=== PATIENT | male | born 1950 | race Caucasian/White ===

== ENCOUNTER 2016-09-10 13:22 | Inpatient (IN) | payer BC ==
--- NOTE | ~2016-09-10 | DS ---
Unit #: [id number] #: [id number] Patient: LUANNE SHAH [id number] [address] [address] [id number] MR#: [id number] NAME: LUANNE SHAH ROOM: 461 Age: 65 Sex: M Admission Date: 09/10/2016 : 1950 Discharge Date: 09/13/2016 Attending Physician: Thony Grey M.D. Primary Care Physician: Primary Care Physician No DISCHARGE SUMMARY PRIMARY DIAGNOSIS Obstructive pyelonephritis. PROCEDURES PERFORMED Cystoscopy, right retrograde placement of double-J ureteral stent. DISPOSITION The patient to follow up with Urology in [place]. DISCHARGE MEDICATIONS Same as admission medications plus Bactrim, tamsulosin, and [place]. HISTORY OF PRESENT ILLNESS This patient initially presenting from out of town and came to the emergency department with nausea, chills, right flank pain, and low-grade fever for 12 hours. He was recognized to have obstructive pyelonephritis due to a 4-mm stone obstructing distal right ureter. This was seen on CT scan. Note that initial white count was 17 and increasing that evening to 21 postoperatively. HOSPITAL COURSE The patient was taken promptly to the operating room where Dr. Grey performed cystoscopy retrograde and right stent placement. He was covered with Rocephin and a Aponte catheter temporarily. He convalesced accordingly and when urine culture returned Enterobacter cloacae sensitive to Bactrim and other agents. He was started on Bactrim. On the day of discharge, his creatinine was 1.5. WBC down to 9.3. He was afebrile for over 24 hours. Tolerating Bactrim, voiding, and discharged with disposition, and medications noted. Dictated by... Jodi Berry/lorraine TD: 10/01/2016 08:17 JOB #: [id number] Unit #: [id number] #: [id number] Patient: LUANNE SHAH DISCHARGE SUMMARY Page 1 of 1 X Catarino Garcia MD DISCHARGE SUMMARY
--- NOTE | ~2016-09-10 | OR ---
Unit #: [id number] #: [id number] Patient: LUANNE SHAH [id number] [address] [place], [place] [address] [id number] Jimmy MR#: [id number] NAME: LUANNE SHAH ROOM: 461 Date of Procedure: 09/10/2016 Admission Date: 09/10/2016 Surgeon: Thony Grey M.D. : 1950 Attending Physician: Thony Grey M.D. OPERATIVE REPORT PREOPERATIVE DIAGNOSES Right distal ureteral stone, hydronephrosis, and UTI. POSTOPERATIVE DIAGNOSES Right distal ureteral stone, hydronephrosis, and UTI. PROCEDURES PERFORMED 1. Cystoscopy, right retrograde pyelogram, and placement of double-J ureteral stent. 2. Interpretation of retrograde pyelogram. COMPLICATIONS None. BRIEF HISTORY AND DESCRIPTION Mr. Shah is a gentleman with a history of right distal ureteral stone, hydronephrosis, UTI, leukocytosis and fever, who presented with the above mentioned symptoms. After explaining the risks and benefits of the procedure, informed consent was obtained. He was brought to the operating room and placed in the dorsal lithotomy position, prepped and draped in a sterile fashion. Rigid cystoscopy was performed with a 21-Sami cystoscope. Anterior urethra is within normal limits. Prostatic urethra showing moderate obstruction upon entering the bladder. The bladder itself appeared to be within normal limits. Ureteral orifice in the right caliber identified. There are significant edema in the ureteral orifice. A Pollack catheter was placed in the ureteral orifice with stone in the intramural ureter and it barely stuck. I had a great difficulty placing a wire or injecting contrast past it. With angle-tip glidewire, I was able to get a wire passed it and then pass the Otter catheter over it and retrograde was performed. The glidewire was switched to a sensor guidewire and a 5 x 26 cm double-J ureteral stent was placed. Immediately copious amounts of purulent urine were drained. Interpretation of retrograde pyelogram: The retrograde pyelogram on the right side revealed a stone in the distal ureteral proximal hydronephrosis, hydroureter, dilated calyceal anatomy, and poor drainage. The patient tolerated the procedure well, transferred to recovery in stable condition. Unit #: [id number] #: [id number] Patient: LUANNE SHAH Dictated by... Jodi Arevalo/lorraine TD: 09/11/2016 03:15 JOB #: [id number] OPERATIVE REPORT Page 1 of 1 X Thony Grey MD PROCEDURE OPERATIVE NOTE
--- NOTE | ~2016-09-10 | EKG ---
PATIENT: LUANNE SHAH UNIT #: [id number] Ventricular Rate: 92 BPM Atrial Rate: 92 BPM P-R Interval: 168 ms QRS Duration: 106 ms Q-T Interval: 354 ms QTC Calculation(Bezet): 437 ms P Beulah: 37 degrees Calculated R Beulah: -26 degrees Calculated T Beulah: 123 degrees Diagnosis Line: Normal sinus rhythm Diagnosis Line: Left ventricular hypertrophy Diagnosis Line: ST and T wave abnormality, consider lateral ischemia Diagnosis Line: Abnormal ECG Diagnosis Line: No previous ECGs available Diagnosis Line: Confirmed by MICHELINE SOLOMON MD ([id number]) on Diagnosis Line: 09/10/2016 10:22:38 PM INTERPRETING MD: PAULA
--- NOTE | ~2016-09-10 | CT4 ---
[facility] A Service of [facility] RADIOLOGY TEXT RESULTS PATIENT: LUANNE SHAH LOCATION: [facility] [id number] : 51 UNIT #: [id number] AGE: [address]: Thony Grey MD SEX: M ORDER DR: [id number] [id number] [facility]. [place], [place] [address] [id number] MR#: [id number] Acc #: [id number] NAME: LUANNE SHAH : 1950 SEX: M STUDY DATE/TIME: 09/10/2016 17:24 UNIT: [facility] ROOM: [facility] STUDY DESCRIPTION: CT Abd and Pelv Wo Cont Attending Physician: Thony Grey M.D. Ordering Physician: Dayami Hansen M.D. Primary Care Physician: No Primary Care Physician MEDICAL IMAGING REPORT This report is preliminary unless electronic signature is present EXAM CT abdomen and pelvis without contrast HISTORY 65-year-old male with lower abdominal pain, nausea, vomiting, and diarrhea for 4 days. TECHNIQUE Axial images performed through the abdomen and pelvis without contrast. Multiplanar reconstructed images were reviewed at a workstation. This CT exam was performed with one or more of the following radiation dose reduction techniques: Automatic exposure control, adjustment of mA and/or kV according to patient size, and iterative reconstruction. FINDINGS ABDOMEN: There is moderate right-sided hydronephrosis and perinephric edema with a 4 mm right UVJ stone. Findings compatible with acute obstruction. There are multiple left-sided nonobstructing stones. Liver, spleen, gallbladder, gastrointestinal tract unremarkable. PELVIS: Bladder is mildly distended. Osseous structures show degenerative changes T12-L1. IMPRESSION 1. A 4 mm right UVJ stone with a moderate right-sided hydronephrosis and hydroureter with perinephric edema. Findings are compatible acute obstruction. 2. Multiple nonobstructing intrarenal stones on the left. Dictated by.Trista Carty M.D. [facility] A Service of [facility] RADIOLOGY TEXT RESULTS PATIENT: LUANNE SHAH LOCATION: [facility] 461-01 : 51 UNIT #: [id number] AGE: [address]: Thony Grey MD SEX: M ORDER DR: THIS IS AN ELECTRONICALLY VERIFIED REPORT Jelani Carty M.D. at 09/11/2016 3:09 PM Parminder TD: 09/11/2016 08:39 JOB #: [id number] MEDICAL IMAGING REPORT Page 1 of 1 COPY
[2016-09-10 15:16] LABS: BASOPHIL% 0.2 % (0-2.5); DIFF IND YES; EOSINOPHIL# 0.2 X10e3 (0-0.7); EOSINOPHIL% 1.3 % (0.0-7.0); HEMATOCRIT 50.7 % (38.0-50.0); HEMOGLOBIN 16.7 gm/dL (13.0-16.0); LYMPHOCYTE# 1.4 X10e3 (1.0-3.5); MEAN CELL VOLUME 89.7 FL (83-96); MEAN CORPUSCULAR HEMOGLOBIN 29.5 PG (28-34); MEAN CORPUSCULAR HGB CONC 32.9 g/dL (30-36); MEAN PLATELET VOLUME 8.4 FL (6.5-11.5); MONOCYTE# 0.6 X10e3 (0-1.0); MONOCYTE% 3.7 % (3.0-12.0); NEUTROPHIL# 15.1 X10e3 (1.5-7.1); NEUTROPHIL% 86.8 % (40-75); PLATELET COUNT 281 X10e3 (140-420); RED BLOOD COUNT 5.66 X10e (3.90-5.60); RED CELL DISTRIBUTION WIDTH 14.2 % (11.0-15.5); WHITE BLOOD COUNT 17.4 X10e3 (4.0-10.5)
[2016-09-10 15:40] LABS: ALBUMIN SERUM 5.1 g/dL (3.5-5.0); BILIRUBIN, DIRECT 0.1 mg/dL (0.0-0.2); BILIRUBIN,INDIRECT 0.3 mg/dL (0.0-0.9); BILIRUBIN,TOTAL 0.4 mg/dL (0.2-2.0); BUN/CREATININE RATIO 15.71; CALCIUM SERUM 10.7 mg/dL (8.4-10.2); CREATININE SERUM 1.4 mg/dL (0.6-1.4); GLOM FILT RATE Estimated 52.7 mL/min (>60); PROTEIN TOTAL SERUM 9.4 g/dL (6.0-8.3)
[2016-09-10 15:47] LABS: ANISOCYTOSIS SL; PLATELET ESTIMATE NORMAL (NORMAL)
[2016-09-10 16:23] LABS: URINE SOURCE CLEAN CATCH
[2016-09-10 16:31] LABS: URINE APPEARANCE CLOUDY; URINE BILIRUBIN NEG (NEG); URINE BLOOD 3+ (NEG); URINE COLOR YELLOW; URINE GLUCOSE NEG (NEG); URINE KETONE NEG (NEG); URINE LEUKOCYTE ESTERASE TRACE (NEG); URINE NITRATE NEG (NEG); URINE PROTEIN 1+ (NEG); URINE UROBILINOGEN 0.2 MG/DL (NEG)
[2016-09-10 16:33] LABS: CULTURE INDICATED? YES; URINE BACTERIA AUWI 4+ (NEGATIVE); URINE SQUAMOUS EPITHELIAL CELL OCC /[HPF]
[2016-09-10 16:45] LABS: POC - CKMB 1.2 ng/mL (0.0-7.9); POC - TROPONIN <0.05 ng/mL (<=0.05)
[2016-09-10 18:48] LABS: POC - CKMB 1.5 ng/mL (0.0-7.9); POC - TROPONIN <0.05 ng/mL (<=0.05)
[2016-09-11] MEDS ORDERED: ALLOPURINOL300 MG PO (02:30)
[2016-09-11] MEDS ORDERED: AMLODIPINE BESYL5 MG PO (02:30)
[2016-09-11] MEDS ORDERED: LOW DOSE ASPIRI81 M1 PO (02:31)
[2016-09-11 03:41] LABS: BASOPHIL# 0.1 X10e3 (0-0.3); BASOPHIL% 0.2 % (0-2.5); DIFF IND NO; EOSINOPHIL% 0.2 % (0.0-7.0); HEMATOCRIT 43.8 % (38.0-50.0); HEMOGLOBIN 14.5 gm/dL (13.0-16.0); LYMPHOCYTE# 1.9 X10e3 (1.0-3.5); LYMPHOCYTE% 9.2 % (17.0-45.0); MEAN CELL VOLUME 90.1 FL (83-96); MEAN CORPUSCULAR HEMOGLOBIN 29.7 PG (28-34); MONOCYTE# 1.3 X10e3 (0-1.0); MONOCYTE% 6.4 % (3.0-12.0); NEUTROPHIL# 17.6 X10e3 (1.5-7.1); PLATELET COUNT 181 X10e3 (140-420); RED BLOOD COUNT 4.86 X10e (3.90-5.60); RED CELL DISTRIBUTION WIDTH 14.6 % (11.0-15.5)
[2016-09-11 04:02] LABS: BUN/CREATININE RATIO 14.37; CREATININE SERUM 1.6 mg/dL (0.6-1.4); GLOM FILT RATE Estimated 44.9 mL/min (>60); POTASSIUM 4.7 mmol/L (3.5-5.1)
[2016-09-11 04:03] LABS: CALCIUM SERUM 8.6 mg/dL (8.4-10.2)
[2016-09-11 04:24] LABS: BASOPHIL# 0.1 X10e3 (0-0.3); BASOPHIL% 0.4 % (0-2.5); DIFF IND NO; EOSINOPHIL# 0.1 X10e3 (0-0.7); EOSINOPHIL% 0.3 % (0.0-7.0); HEMATOCRIT 42.3 % (38.0-50.0); HEMOGLOBIN 13.6 gm/dL (13.0-16.0); LYMPHOCYTE% 10.7 % (17.0-45.0); MEAN CELL VOLUME 90.7 FL (83-96); MEAN CORPUSCULAR HEMOGLOBIN 29.1 PG (28-34); MEAN CORPUSCULAR HGB CONC 32.1 g/dL (30-36); MEAN PLATELET VOLUME 8.9 FL (6.5-11.5); MONOCYTE# 1.4 X10e3 (0-1.0); MONOCYTE% 7.2 % (3.0-12.0); NEUTROPHIL# 15.5 X10e3 (1.5-7.1); NEUTROPHIL% 81.4 % (40-75); PLATELET COUNT 213 X10e3 (140-420); RED BLOOD COUNT 4.67 X10e (3.90-5.60); RED CELL DISTRIBUTION WIDTH 14.4 % (11.0-15.5)
[2016-09-11 04:36] LABS: BUN/CREATININE RATIO 14.11; CALCIUM SERUM 8.8 mg/dL (8.4-10.2); CREATININE SERUM 1.7 mg/dL (0.6-1.4); GLOM FILT RATE Estimated 41.7 mL/min (>60); POTASSIUM 4.3 mmol/L (3.5-5.1)
[2016-09-12 04:26] LABS: HEMATOCRIT 37.5 % (38.0-50.0); HEMOGLOBIN 12.3 gm/dL (13.0-16.0); MEAN CELL VOLUME 89.3 FL (83-96); MEAN CORPUSCULAR HEMOGLOBIN 29.2 PG (28-34); MEAN CORPUSCULAR HGB CONC 32.7 g/dL (30-36); MEAN PLATELET VOLUME 8.6 FL (6.5-11.5); RED BLOOD COUNT 4.2 X10e (3.90-5.60); WHITE BLOOD COUNT 12.3 X10e3 (4.0-10.5)
[2016-09-12 04:54] LABS: BUN/CREATININE RATIO 14.11; CALCIUM SERUM 8.5 mg/dL (8.4-10.2); CREATININE SERUM 1.7 mg/dL (0.6-1.4); GLOM FILT RATE Estimated 41.7 mL/min (>60); POTASSIUM 4.1 mmol/L (3.5-5.1)
[2016-09-13 04:20] LABS: BASOPHIL% 0.2 % (0-2.5); EOSINOPHIL# 0.5 X10e3 (0-0.7); EOSINOPHIL% 5.2 % (0.0-7.0); HEMATOCRIT 39.1 % (38.0-50.0); LYMPHOCYTE# 1.4 X10e3 (1.0-3.5); LYMPHOCYTE% 15.5 % (17.0-45.0); MEAN CELL VOLUME 89.6 FL (83-96); MEAN CORPUSCULAR HEMOGLOBIN 29.7 PG (28-34); MEAN CORPUSCULAR HGB CONC 33.2 g/dL (30-36); MEAN PLATELET VOLUME 8.8 FL (6.5-11.5); MONOCYTE# 0.8 X10e3 (0-1.0); MONOCYTE% 8.6 % (3.0-12.0); NEUTROPHIL# 6.5 X10e3 (1.5-7.1); NEUTROPHIL% 70.5 % (40-75); PLATELET COUNT 183 X10e3 (140-420); RED BLOOD COUNT 4.36 X10e (3.90-5.60); RED CELL DISTRIBUTION WIDTH 13.7 % (11.0-15.5); WHITE BLOOD COUNT 9.3 X10e3 (4.0-10.5)
[2016-09-13 04:21] LABS: DIFF IND NO
[2016-09-13 04:42] LABS: BUN/CREATININE RATIO 13.33; CALCIUM SERUM 8.8 mg/dL (8.4-10.2); CREATININE SERUM 1.5 mg/dL (0.6-1.4); GLOM FILT RATE Estimated 48.5 mL/min (>60); POTASSIUM 4.3 mmol/L (3.5-5.1)
[2016-09-13] MEDS ORDERED: FLOMAX0.4 M1 PO (12:48)
[2016-09-13] MEDS ORDERED: HYDROCODON-ACE1 EAC7 PO (12:51)
[2016-09-13] MEDS ORDERED: BACTRIM DS TAB1 EACH PO (12:51)
== END 2016-09-13 14:00 | disposition home or self-care (01) | DRG 694 ==
LOC: CED 13:22 → CPACUOF 21:06 → C4C 21:06
PROVIDERS: Internal Medicine; Student in an Organized Health Care Education/Training Program; Urology
PROC: 0T768DZ Dilation of Right Ureter with Intraluminal Device, Via Natural or Artificial Opening Endoscopic (ICD-10-PCS; principal; 2016-09-10 21:30)
DX: N13.2 Hydronephrosis with renal and ureteral calculous obstruction (principal); I10 Essential (primary) hypertension; N39.0 Urinary tract infection, site not specified; I25.10 Atherosclerotic heart disease of native coronary artery without angina pectoris; Z95.1 Presence of aortocoronary bypass graft; M10.9 Gout, unspecified
CPT/HCPCS: 36415; 74176; 80048; 80076; 81003; 82553; 83690; 84484; 85025; 85027; 87086; 87088; 87186; 93005; 96374; 96375; 99285; C2617; C9113; J0360; J0696; J1170; J2405; J3010